=== PATIENT | female | born 1960 | race Caucasian/White ===

== ENCOUNTER 2018-03-09 07:28 | Day surgery (SDC) | payer OTHER ==
[2018-03-09] MEDS ORDERED: PROPOFOL 60 ML (09:38)
[2018-03-09] MEDS ORDERED: LIDOCAINE 2% (SDV) 5 ML INJ (09:38)
== END 2018-03-09 11:49 | disposition home or self-care (01) ==
LOC: GIL 07:28
DX: R19.4 Change in bowel habit (principal); K64.8 Other hemorrhoids; K63.89 Other specified diseases of intestine; K29.70 Gastritis, unspecified, without bleeding; E78.5 Hyperlipidemia, unspecified
CPT/HCPCS: 43239; 88305; 88312